=== PATIENT | male | born 1950 | race Native Hawaiian/Other Pacific Islander ===

== ENCOUNTER 2016-12-18 11:58 | Emergency (ER) | payer OTHER ==
[~2016-12-18] VITALS: Ht 182.9 cm; Wt 142.9 kg
[2016-12-18 12:09] VITALS: TEMP 98.3
[2016-12-18 15:32] LABS: PLATELET COUNT 246 K/uL (142-355)
[2016-12-18 15:39] LABS: SODIUM 137 mmol/L (136-145)
[2016-12-18 17:47] VITALS: BP 128/82
== END 2016-12-18 17:48 | disposition home or self-care (01) ==
LOC: ED 11:58
DX: R06.09 Other forms of dyspnea (principal)
CPT/HCPCS: 36415; 80053; 83880; 85027; 96374; 99284; J1940

== ENCOUNTER 2017-10-10 09:39 | Outpatient (CLI) | payer OTHER | END 2017-10-10 19:14 | disposition home or self-care (01) | LOC: RAD 09:39 | DX: M54.5 Low back pain (principal) ==

== ENCOUNTER 2017-11-17 08:31 | Outpatient (CLI) | payer OTHER | END 2017-11-17 22:01 | disposition home or self-care (01) | LOC: RAD 08:31 | DX: J44.1 Chronic obstructive pulmonary disease with (acute) exacerbation (principal) ==

== ENCOUNTER 2018-01-05 13:49 | Outpatient (CLI) | payer OTHER | END 2018-01-05 20:35 | disposition home or self-care (01) | LOC: RAD 13:49 | DX: R06.02 Shortness of breath (principal) ==

== ENCOUNTER 2018-05-18 09:40 | Outpatient (CLI) | payer OTHER | END 2018-05-18 20:30 | disposition home or self-care (01) | LOC: RAD 09:40 | DX: J44.1 Chronic obstructive pulmonary disease with (acute) exacerbation (principal) ==

== ENCOUNTER 2018-10-19 10:07 | Outpatient (CLI) | payer OTHER ==
[2018-10-19 10:26] LABS: PLATELET COUNT 264 K/uL (142-355)
[2018-10-19 10:35] LABS: POTASSIUM 4.1 mmol/L (3.6-5.2)
== END 2018-10-19 20:22 | disposition home or self-care (01) ==
LOC: LABW 10:07
PROVIDERS: Nurse Practitioner Family
DX: H16.223 Keratoconjunctivitis sicca, not specified as Sjogren's, bilateral (principal); K11.7 Disturbances of salivary secretion; L40.0 Psoriasis vulgaris; M06.4 Inflammatory polyarthropathy; M10.09 Idiopathic gout, multiple sites
CPT/HCPCS: 36415; 80053; 85027

== ENCOUNTER 2018-11-20 15:12 | Outpatient (CLI) | payer OTHER ==
[2018-11-20 15:36] LABS: PLATELET COUNT 292 K/uL (142-355)
[2018-11-20 15:53] LABS: POTASSIUM 4.9 mmol/L (3.6-5.2)
== END 2018-11-20 21:43 | disposition home or self-care (01) ==
LOC: LABW 15:12
PROVIDERS: Nurse Practitioner Family
DX: H16.223 Keratoconjunctivitis sicca, not specified as Sjogren's, bilateral (principal); K11.7 Disturbances of salivary secretion; L40.0 Psoriasis vulgaris; M10.09 Idiopathic gout, multiple sites; M17.0 Bilateral primary osteoarthritis of knee
CPT/HCPCS: 36415; 80053; 85027

== ENCOUNTER 2019-02-01 10:46 | Outpatient (CLI) | payer OTHER | END 2019-02-01 16:00 | disposition home or self-care (01) | LOC: RAD 10:46 | DX: H16.223 Keratoconjunctivitis sicca, not specified as Sjogren's, bilateral (principal) ==

== ENCOUNTER 2019-03-12 16:21 | Outpatient (CLI) | payer OTHER | END 2019-03-12 22:29 | disposition home or self-care (01) | LOC: RAD 16:21 | DX: J20.8 Acute bronchitis due to other specified organisms (principal) ==

== ENCOUNTER 2020-07-20 14:18 | Outpatient (CLI) | payer OTHER | END 2020-07-20 20:11 | disposition home or self-care (01) | LOC: RAD 14:18 | PROVIDERS: ATTEND Internal Medicine Rheumatology | DX: M17.0 Bilateral primary osteoarthritis of knee (principal) ==

== ENCOUNTER 2020-08-28 09:10 | Outpatient (CLI) | payer OTHER | END 2020-08-28 22:11 | disposition home or self-care (01) | LOC: US 09:10 | PROVIDERS: ATTEND Registered Nurse | DX: R10.11 Right upper quadrant pain (principal) ==

== ENCOUNTER 2020-09-01 08:25 | Outpatient (CLI) | payer OTHER | END 2020-09-01 19:10 | disposition home or self-care (01) | LOC: NM 08:25 | PROVIDERS: ATTEND Nurse Practitioner | DX: R10.11 Right upper quadrant pain (principal); R05 Cough | CPT/HCPCS: A9537 ==

== ENCOUNTER 2020-09-28 15:47 | Outpatient (CLI) | payer OTHER | END 2020-09-28 22:04 | disposition home or self-care (01) | LOC: INF 15:47 | PROVIDERS: ATTEND Internal Medicine | DX: Z23 Encounter for immunization (principal) | CPT/HCPCS: 96372 ==

== ENCOUNTER 2020-10-19 15:46 | Outpatient (CLI) | payer OTHER | END 2020-10-19 20:32 | disposition home or self-care (01) | LOC: INF 15:46 | PROVIDERS: ATTEND Internal Medicine | DX: Z23 Encounter for immunization (principal) | CPT/HCPCS: 96372 ==

== ENCOUNTER 2021-01-03 10:58 | Outpatient (CLI) | payer OTHER | END 2021-01-03 19:45 | disposition home or self-care (01) | LOC: RAD 10:58 | PROVIDERS: ATTEND Registered Nurse | DX: M25.512 Pain in left shoulder (principal); M25.561 Pain in right knee ==

== ENCOUNTER 2022-01-19 06:45 | Emergency (ER) | payer OTHER ==
[~2022-01-19] VITALS: Ht 182.9 cm; Wt 149.7 kg
[2022-01-19 06:45] VITALS: TEMP 98.8
[2022-01-19 07:22] LABS: PLATELET COUNT 369 K/uL (142-355)
[2022-01-19 07:32] LABS: POTASSIUM 3.1 mmol/L (3.6-5.2)
[2022-01-19 08:09] VITALS: BP 132/84
== END 2022-01-19 08:11 | disposition home or self-care (01) ==
LOC: ED 06:45
PROVIDERS: Hospitalist
PROC: 0T9B70Z Drainage of Bladder with Drainage Device, Via Natural or Artificial Opening (ICD-10-PCS; principal; 2022-01-19)
DX: R33.8 Other retention of urine (principal); Z96.652 Presence of left artificial knee joint
CPT/HCPCS: 51702; 80048; 81002; 81015; 85027; 87088; 96372; 99283; J0696; J1885

== ENCOUNTER 2022-01-21 11:02 | Outpatient (CLI) | payer OTHER ==
[2022-01-21 11:49] LABS: POTASSIUM 3.7 mmol/L (3.6-5.2)
== END 2022-01-21 18:59 | disposition home or self-care (01) ==
LOC: LAB 11:02
PROVIDERS: ATTEND Nurse Practitioner Family
DX: N17.9 Acute kidney failure, unspecified (principal); R33.8 Other retention of urine; I11.0 Hypertensive heart disease with heart failure; I50.9 Heart failure, unspecified
CPT/HCPCS: 80048

== ENCOUNTER 2022-02-01 11:00 | Outpatient (CLI) | payer OTHER ==
[2022-02-01 11:24] LABS: POTASSIUM 4.2 mmol/L (3.6-5.2)
== END 2022-02-01 19:08 | disposition home or self-care (01) ==
LOC: LAB 11:00
PROVIDERS: ATTEND Specialist
DX: I71.4 Abdominal aortic aneurysm, without rupture (principal); R06.02 Shortness of breath
CPT/HCPCS: 80048

== ENCOUNTER 2022-02-04 10:24 | Outpatient (CLI) | payer OTHER ==
[2022-02-04 10:42] LABS: POTASSIUM 4.3 mmol/L (3.6-5.2)
== END 2022-02-04 18:50 | disposition home or self-care (01) ==
LOC: LAB 10:24
PROVIDERS: ATTEND Specialist
DX: E87.5 Hyperkalemia (principal); E78.49 Other hyperlipidemia; I71.4 Abdominal aortic aneurysm, without rupture; E03.8 Other specified hypothyroidism; R53.83 Other fatigue
CPT/HCPCS: 80048; 82570; 83935; 84300

== ENCOUNTER 2023-01-05 15:05 | Observation (INO) | payer OTHER ==
[~2023-01-05] VITALS: Ht 182.9 cm; Wt 137.0 kg
[2023-01-05] VITALS (8 sets, daily range): BP systolic 113–152; BP diastolic 65–95; TEMP 98.6–99.2; Ht 182.9 cm; Wt 137.0 kg
[2023-01-05 15:59] LABS: PLATELET COUNT 417 K/uL (142-355)
[2023-01-05 16:00] LABS: POTASSIUM 3.9 mmol/L (3.6-5.2)
[2023-01-06 03:33] VITALS: BP 115/75; TEMP 99.2
[2023-01-06 04:48] LABS: PLATELET COUNT 355 K/uL (142-355)
[2023-01-06 05:02] LABS: POTASSIUM 4.1 mmol/L (3.6-5.2)
[2023-01-06 08:00] VITALS: BP 101/57; TEMP 97.4
[2023-01-06] MEDS ORDERED: SECUKINUMAB SC (09:39)
[2023-01-06] MEDS ORDERED: MOUNJARO SC (09:41)
[2023-01-06] MEDS ORDERED: TESTOST CYP200 MG/ML IM (09:42)
[2023-01-06] MEDS ORDERED: PREMIUM LIDOCAINE5 % EX (09:43)
[2023-01-06] MEDS ORDERED: VITAMIN DE1000 MCG/M INJ (09:43)
[2023-01-06] MEDS ORDERED: TRIA0.1C5 TOP (09:44)
[2023-01-06] MEDS ORDERED: MONT10TA PO (09:45)
[2023-01-06] MEDS ORDERED: MYRBETRIQ50 MG PO (09:45)
[2023-01-06] MEDS ORDERED: CELE200C2 PO (09:46)
[2023-01-06] MEDS ORDERED: AMLODIPINE BESYLATE PO (09:46)
[2023-01-06] MEDS ORDERED: MINOCYCLINE50 MG PO (09:47)
[2023-01-06] MEDS ORDERED: SPIRONOLACT25 MG PO (09:47)
[2023-01-06] MEDS ORDERED: RANOLAZINE ER500 MG PO (09:47)
[2023-01-06] MEDS ORDERED: GRALISE600 MG PO (09:48)
[2023-01-06] MEDS ORDERED: PANTOPRAZOLE 40MG TA PO (09:49)
[2023-01-06] MEDS ORDERED: BENAZEPRIL HYDR20 MG PO (09:49)
[2023-01-06] MEDS ORDERED: HYDROXYZINE HYD50 MG PO (09:49)
[2023-01-06] MEDS ORDERED: PRAVASTATIN PO (09:50)
[2023-01-06] MEDS ORDERED: LEVALBUTEROL INH (09:51)
[2023-01-06] MEDS ORDERED: BUDE1AER5 INH (09:51)
[2023-01-06] MEDS ORDERED: LEVO-T200 MCG PO (09:52)
[2023-01-06 12:00] VITALS: BP 105/60; TEMP 98
[2023-01-06 16:00] VITALS: BP 103/61; TEMP 97.9
[2023-01-06 20:00] VITALS: BP 124/68; TEMP 98.1
[2023-01-07] VITALS: BP 137/83; TEMP 98.4
[2023-01-07 04:00] VITALS: BP 110/64; TEMP 98.7
[2023-01-07 05:15] LABS: PLATELET COUNT 298 K/uL (142-355)
[2023-01-07 05:28] LABS: POTASSIUM 3.5 mmol/L (3.6-5.2)
[2023-01-07 08:00] VITALS: BP 119/72; TEMP 98
== END 2023-01-07 12:25 | disposition home or self-care (01) ==
LOC: ED 15:12 → MED/SURG 16:25
PROVIDERS: ADMIT Family Medicine; ATTEND Family Medicine
DX: K56.699 Other intestinal obstruction unspecified as to partial versus complete obstruction (principal); J44.1 Chronic obstructive pulmonary disease with (acute) exacerbation; E11.9 Type 2 diabetes mellitus without complications; E78.49 Other hyperlipidemia; R19.7 Diarrhea, unspecified; E88.81 Metabolic syndrome and other insulin resistance; E87.6 Hypokalemia; G47.39 Other sleep apnea; K21.9 Gastro-esophageal reflux disease without esophagitis; M13.88 Other specified arthritis, other site; R11.2 Nausea with vomiting, unspecified; Z87.891 Personal history of nicotine dependence; R10.9 Unspecified abdominal pain; N28.89 Other specified disorders of kidney and ureter; D72.828 Other elevated white blood cell count; I50.9 Heart failure, unspecified; I11.0 Hypertensive heart disease with heart failure; K60.2 Anal fissure, unspecified
CPT/HCPCS: 36415; 43754; 80048; 80053; 81000; 83630; 83690; 83735; 83880; 84443; 85027; 87015; 87045; 87324; 87328; 87329; 87449; 87899; 94760; 96361; 96374; 96375; 96376; 99221; 99284; G0378; J2270; J2405; J2765; J3490

== ENCOUNTER 2023-07-31 11:15 | Outpatient (CLI) | payer OTHER ==
[~2023-07-31 11:15] MED LIST: AMLODIPINE BESYLATE PO; BENAZEPRIL HYDR20 MG PO; BUDE1AER5 INH; CELE200C2 PO; GRALISE600 MG PO; HYDROXYZINE HYD50 MG PO; LEVALBUTEROL INH; LEVO-T200 MCG PO; MINOCYCLINE50 MG PO; MONT10TA PO; MOUNJARO SC; MYRBETRIQ50 MG PO; PANTOPRAZOLE 40MG TA PO; PRAVASTATIN PO; PREMIUM LIDOCAINE5 % EX; RANOLAZINE ER500 MG PO; SECUKINUMAB SC; SPIRONOLACT25 MG PO; TESTOST CYP200 MG/ML IM; TRIA0.1C5 TOP; VITAMIN DE1000 MCG/M INJ
[2023-07-31 11:39] LABS: PLATELET COUNT 315 K/uL (142-355)
[2023-07-31 12:04] LABS: POTASSIUM 3.8 mmol/L (3.6-5.2)
== END 2023-07-31 19:30 | disposition home or self-care (01) ==
LOC: LABW 11:15
PROVIDERS: ATTEND Internal Medicine Rheumatology
DX: L40.50 Arthropathic psoriasis, unspecified (principal); L40.9 Psoriasis, unspecified; M19.90 Unspecified osteoarthritis, unspecified site; M47.816 Spondylosis without myelopathy or radiculopathy, lumbar region; E55.9 Vitamin D deficiency, unspecified
CPT/HCPCS: 36415; 80053; 82306; 84550; 85027; 85652; 86140